=== PATIENT | female | born 1995 | race Caucasian/White ===

== ENCOUNTER 2017-04-09 12:59 | Emergency (ER) | payer OTHER ==
[~2017-04-09 12:59] MED LIST: LOTRISONE CREAM45 GM TOP
== END 2017-04-09 14:19 | disposition home or self-care (01) ==
LOC: SED 12:59
DX: L03.116 Cellulitis of left lower limb (principal); L03.115 Cellulitis of right lower limb
CPT/HCPCS: 82947; 99283